=== PATIENT | male | born 1960 | race Caucasian/White ===

== ENCOUNTER 2017-02-27 02:02 | Inpatient (IN) | payer OTHER ==
[~2017-02-27] VITALS: Ht 167.6 cm; Wt 68.1 kg
[~2017-02-27 02:02] MED LIST: CHLO10CA7; CLX20; PENI250T3; TELM40TA11
[2017-02-27] MEDS ORDERED: ACETAMINOPHEN 325 MG TAB PO PRN (02:45)
[2017-02-27] MEDS ORDERED: MAGNESIUM HYDROXIDE SUSP 30 ML UDC PO PRN (02:45)
[2017-02-27] MEDS ORDERED: ALUMINUM/MAGNESIUM SUSP 30 ML UDC PO PRN (02:45)
[2017-02-27] MEDS ORDERED: BISMUTH SUBSALICYLATE PER ML OMNICELL CHARGE PO PRN (02:45)
[2017-02-27] MEDS ORDERED: hydrOXYzine HCL 25 MG TAB PO PRN ×2 (02:45)
[2017-02-27] MEDS ORDERED: NURSING VERBAL MED ORDER ONE ×2 (02:45→14:15)
[2017-02-27] MEDS ORDERED: SODIUM CHLORIDE 0.65% NA SOLN 45 ML (OCEAN) PRN (02:45)
[2017-02-27] MEDS ORDERED: HYDR25TA4 PO (04:30)
[2017-02-27] MEDS ORDERED: RST15 (04:33)
[2017-02-27] MEDS ORDERED: METO50TA16 PO (04:34)
[2017-02-27] MEDS ORDERED: ATOR-26 PO (04:35)
[2017-02-27] MEDS ORDERED: FLUO40CA8 PO (04:37)
[2017-02-27] MEDS ORDERED: CLOP1TAB15 PO (04:38)
[2017-02-27] MEDS ORDERED: TOPI25TA99 PO (04:39)
[2017-02-27] MEDS ORDERED: GABA-113 PO (04:40)
[2017-02-27] MEDS ORDERED: LORA-741 PO (04:42)
[2017-02-27] MEDS ORDERED: LISI40TA PO (04:44)
[2017-02-27] MEDS ORDERED: LTHSR/300 PO (04:45)
[2017-02-27] MEDS ORDERED: PRVHFAIN PO (04:51)
[2017-02-27] MEDS ORDERED: NTRGSL/4 SL (04:52)
[2017-02-27 04:53] VITALS: BP 146/94; PULSE 56; TEMP 36.8; Ht 167.6 cm; Wt 68.1 kg
[2017-02-27] MEDS ORDERED: ASPI81TA28 PO (04:54)
[2017-02-27 06:53] VITALS: BP 146/94; PULSE 56; TEMP 36.8
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
[2017-02-27] MEDS ORDERED: CLOPIDOGREL BISULFATE 75 MG TAB PO ONE (10:31)
[2017-02-27] MEDS ORDERED: HYDROCHLOROTHIAZIDE 25 MG TAB PO ONE (10:31)
[2017-02-27] MEDS ORDERED: LISINOPRIL 40 MG TAB PO ONE (10:31)
[2017-02-27] MEDS ORDERED: METOPROLOL TARTRATE 50 MG TAB PO ONE (10:31)
[2017-02-27] MEDS ORDERED: TOPIRAMATE 25 MG TAB PO ONE (10:31)
[2017-02-27] MEDS ORDERED: ASPIRIN 81 MG ECTAB PO ONE (10:31)
[2017-02-27] MEDS ORDERED: GABAPENTIN 300 MG CAP PO ONE (10:31)
[2017-02-27] MEDS ORDERED: FLUOXETINE HCL 20 MG CAP PO ONE (10:31)
[2017-02-27] MEDS ORDERED: NITROGLYCERIN 0.4 MG SL PER TAB CHARGE SL PRN (10:45)
[2017-02-27] MEDS ORDERED: ALBUTEROL HFA 8 GM INHALER INH PRN (10:45)
[2017-02-27] MEDS ORDERED: LORAZEPAM 0.5 MG TAB PO PRN (10:45)
[2017-02-27] MEDS: LITHIUM CARBONATE 300 MG TAB PO SCH ×4 (10:54→21:34)
[2017-02-27] MEDS ORDERED: NICOTINE 21 MG/24 HR TDSY EXT ONE (14:45)
[2017-02-27] MEDS: GABAPENTIN 300 MG CAP PO SCH (21:34)
[2017-02-27] MEDS: METOPROLOL TARTRATE 50 MG TAB PO SCH (21:34)
[2017-02-27] MEDS: ATORVASTATIN 40 MG TAB PO SCH (21:34)
[2017-02-27] MEDS: TOPIRAMATE 25 MG TAB PO SCH (21:35)
[2017-02-27] MEDS: TEMAZEPAM 15 MG CAP PO PRN (21:47)
[2017-02-27 21:48] VITALS: BP 123/80; PULSE 55
[2017-02-28 06:56] VITALS: BP_SYST 104; BP_SYST 119; BP_DIAS 71; BP_DIAS 85; PULSE 60; PULSE 67; TEMP 36.5
[2017-02-28] MEDS ORDERED: NICOTINE 21 MG/24 HR TDSY EXT SCH (09:00)
[2017-02-28] MEDS: ASPIRIN 81 MG ECTAB PO SCH (09:09)
[2017-02-28] MEDS: LITHIUM CARBONATE 300 MG TAB PO SCH ×3 (09:10→21:04)
[2017-02-28] MEDS: HYDROCHLOROTHIAZIDE 25 MG TAB PO SCH (09:10)
[2017-02-28] MEDS: METOPROLOL TARTRATE 50 MG TAB PO SCH ×2 (09:10→21:03)
[2017-02-28] MEDS: TOPIRAMATE 25 MG TAB PO SCH ×2 (09:10→21:04)
[2017-02-28] MEDS: GABAPENTIN 300 MG CAP PO SCH ×2 (09:10→21:04)
[2017-02-28] MEDS: LISINOPRIL 40 MG TAB PO SCH (09:11)
[2017-02-28] MEDS: FLUOXETINE HCL 20 MG CAP PO SCH (09:11)
[2017-02-28] MEDS: CLOPIDOGREL BISULFATE 75 MG TAB PO SCH (09:11)
[2017-02-28] MEDS ORDERED: NICOTINE 21 MG/24 HR TDSY EXT PRN (10:30)
--- NOTE | 2017-02-28 10:33 | Psychiatric Progress Notes ---
Progress Note Date of Service Feb 28, 2017. Interval History 56-year-old man from [place] who reports a history of bipolar disorder, was taken to [facility] based on referral by their crisis unit. He is depressed, having suicidal thoughts and although he denies acute plan, says that he worries he will spontaneously make an attempt. He was transferred here voluntarily but says that he was cut worst into doing so when he really wanted to be at a smoking facility and today is asking that we make those referrals. We will oblige his request but our perception is that his insurance will not pay for a voluntary transfer at this point and he would have to be financially responsible for an ambulance transport. He admits that he has not been taking his medications regularly and so our first step will be to place him back on all of his outpatient medications and see that he gets them regularly and work with him to be more compliant as an outpatient. We will collaborate with his outpatient providers. If we are not able to obtain a lateral transfer and he insists that he does not want to be here, he will be offered a 72 hour notice. We will recommend a family meeting which will necessarily have to be by phone with his partner. At this time, the patient requires inpatient mental health treatment due to the severity of his depression and the risk for spontaneous suicide attempt if discharged. Chief Complaint "If I go to groups and bear my soul, will I get out of here?". Subjective Patient was seen & assessed interval progress reviewed with Treatment Team. The patient was in his room and refusing to get out of bed or go to groups. He submitted a 72 hr notice yesterday saying that he wants to leave. He tries to bargain by asking if he goes to group and tells all, will I discharge him. He continues to feel that he was "dumped" here by [facility] and therefore not here by choice. He tries some juvenile reasoning to justify his staying in bed, saying "I'm in a hospital. In hospitals, you stay in bed.". His only genuine question was asking why was it so hard for him to join the groups, "Am I worse this time?". Our discussion centered on his anxiety about meeting new people. I reviewed our goals for his treatment that included ensuring he was safe for discharge and that in order to do that we needed to see that he was engaging in a meaningful way in his treatment. He says that he is not having SI today. He continues to refuse a meeting with his partner, but may be willing for a meeting with one of his daughters and he is also considering staying with a friend after discharge, rather than going home to his partner. He denies aud/ vis hallucinations. Review of Systems Constitutional: No fever, No chills, No sweats, No weight loss, No weakness, No fatigue, No problem reported ENT: No hearing loss, No unusual epistaxis, No nasal symptoms, No sore throat, No tinnitus, No dental problems, No trouble swallowing, No problem reported Respiratory: No cough, No sputum, No wheezing, No shortness of breath, No dyspnea on exertion, No dyspnea at rest, No hemoptysis, No problem reported Cardiovascular: No chest pain, No orthopnea, No PND, No edema, No claudication , No palpitations, No problem reported Abdomen: No pain, No nausea, No vomiting, No diarrhea, No constipation, No GI bleeding, No problem reported Musculoskeletal: No joint pain, No muscle pain, No swelling, No calf pain, No problem reported Neurologic: No memory loss, No paralysis, No weakness, No numbness/tingling, No vertigo, No balance problems, No problem reported Psychiatric: + problem reported (irritable, not wanting to be here) Integumentary: No rash, No itch, No new/changing skin lesions, No color change , No bleeding, No problem reported Sleep Information Total Hours of Sleep: 11.25 Meal Information Percent of Breakfast Consumed: 75 Percent of Lunch Consumed: 100 Mental Status Exam During interview pt is: uncooperative (irritable refusing to come to the interview room) Appearance: appropriately dressed, appropriately groomed Eye contact is: fair Motor behavior is: no abnormal motor movements Speech: normal in rate, rhythm & volume Affect: irritable Mood is: irritable Thought process: goal directed, perseveration (about wanting to be discharged) Thought content: reality based without delusions Suicidal thought are: denied, Plan: denied, Intent: denied Homicidal thoughts are: denied Hallucinations: denies auditory, denies visual Cognition: memory grossly intact, attention grossly intact Intelligence estimated to be: average Insight: impaired Judgement: impaired Impression The patient has submitted his 72 hr notice to leave treatment, but has not been willing to engage in treatment to mediate risk factors. He is refusing to go to groups or have a meeting with his partner. We will continue to encourage him to work on his own behalf, and demonstrate that he is safe to be discharged , but if he continues to refuse treatment, consideration will be given to a 302. Plan (1) bipolar ii disorder, depressed severe with mixed features 02/27 -Continue patient's outpatient medications including Prozac, lithium, Topamax -If mood remains unstable or irritable, consider reducing Prozac -Obtain outpatient records from current providers and coordinate aftercare -Family meeting with partner by phone -Patient requesting lateral transfer to a smoking facility which he said he was promised on transfer from [facility]. Will attempt, but patient may have to be responsible for ambulance transport payment -Every 15 minute checks for safety -Encourage participation in group and individual counseling -Assist the patient to learn and utilize additional healthy coping strategies 02/28 - Has submitted 72 hr notice, up on 03/02 as 1230. Will continue to gather information toward the need for further inpatient treatment. - Continue current meds - Encourage meeting with someone in his support [place] (2) Coronary artery disease 02/27 -Continue home medications (3) Tobacco use disorder 02/27 - Given patient's cardiovascular conditions, encouraged to quit smoking. Patient declined smoking cessation at this time although will be provided a nicotinic patch during his stay (4) Hypertension 02/27 -Continue home medications -Monitor blood pressure - Encourage patient to address modifiable risk factors including smoking (5) Dyslipidemia 02/27 - Continue atorvastatin at home dose (6) History of acute myocardial infarction 02/27 -Encourage patient to exercise and address modifiable heart risk factors Has been reviewed with Dr. Bárbara Lombardi Discharge / Aftercare Planning Primary Care Physician: Name: Dr. Garcia Phone Number: [phone] Psychiatrist: Name: Dr. Jose BRYAN Phone Number: [phone] Date of Appointment: Mar 08, 2017 Time of Appointment: 1 pm Therapist: Name: Justin HUIZAR Phone Number: [phone] Date of Appointment: Mar 01, 2017 Time of Appointment: 1 pm Visit Code E&M Code: 18866 Inventory Assets Strengths: Has housing, has been with his partner for 3 years Needs: To take medications regularly, abstain from illegal substances Risk Factors Assessment Male: Yes : Yes /single/: No Higher / Fall in social status: No Health problems: Yes Mental Health Diagnoses: Yes Substance use disorders: No Previous attempt: Yes Family history of suicide: Yes Previous psychiatric stay: Yes Hopelessness: No Smoker: Yes Protective Factors Assessment Evangelical beliefs: No : No Responsible for young children: No Employed: No Stable relationships: No Good rapport with provider: Yes Data Vital Signs Last 24 Hrs: Date Time Temp Pulse Resp B/P (MAP) Pulse Ox O2 Delivery O2 Flow Rate FiO2 02/28/17 06:56 36.5 60 16 104/71 67 119/85 02/27/17 21:48 55 16 123/80 Meds Administered Last 24 Hrs: Meds Administered (Past 24Hrs) Medications (Trade) Dose Ordered Sig/Susan Route Start Time Stop Time Status Last Admin Dose Admin Aspirin (Ecotrin Tab) 81 mg QAM PO 02/28/17 09:00 03/30/17 08:59 02/28/17 09:09 81 MG Atorvastatin Calcium (Lipitor Tab) 80 mg HS PO 02/27/17 22:00 03/29/17 21:59 02/27/17 21:34 80 MG Clopidogrel Bisulfate (plAVix TAB) 75 mg QAM PO 02/28/17 09:00 03/30/17 08:59 02/28/17 09:11 75 MG Fluoxetine HCl (Prozac Cap) 80 mg QAM PO 02/28/17 09:00 03/30/17 08:59 02/28/17 09:11 80 MG Gabapentin (Neurontin Cap) 300 mg BID PO 02/27/17 22:00 03/29/17 21:59 02/28/17 09:10 300 MG Hydrochlorothiazide (Hydrochlorothiazide Tab) 25 mg QAM PO 02/28/17 09:00 03/30/17 08:59 02/28/17 09:10 25 MG Lisinopril (Zestril Tab) 40 mg QAM PO 02/28/17 09:00 03/30/17 08:59 02/28/17 09:11 40 MG Metoprolol Tartrate (Lopressor Tab) 50 mg BID PO 02/27/17 22:00 03/29/17 21:59 02/28/17 09:10 50 MG Temazepam (Restoril Cap) 15 mg HS PRN PO 02/27/17 10:45 03/29/17 10:44 02/27/17 21:47 15 MG Topiramate (Topamax Tab) 75 mg BID PO 02/27/17 22:00 03/29/17 21:59 02/28/17 09:10 75 MG [place] Carbonate ([place] Carbonate Tab) 300 mg TID PO 02/27/17 14:00 03/29/17 13:59 02/28/17 09:10 300 MG Aspirin (Ecotrin Tab) 81 mg 1031 ONCE PO 02/27/17 10:31 02/27/17 10:36 DC 02/27/17 10:48 81 MG Clopidogrel Bisulfate (plAVix TAB) 75 mg 1031 ONCE PO 02/27/17 10:31 02/27/17 10:36 DC 02/27/17 10:51 75 MG Fluoxetine HCl (Prozac Cap) 80 mg 1031 ONCE PO 02/27/17 10:31 02/27/17 10:38 DC 02/27/17 10:51 80 MG Gabapentin (Neurontin Cap) 300 mg 1031 ONCE PO 02/27/17 10:31 02/27/17 10:38 DC 02/27/17 10:50 300 MG Hydrochlorothiazide (Hydrochlorothiazide Tab) 25 mg 1031 ONCE PO 02/27/17 10:31 02/27/17 10:38 DC 02/27/17 10:49 25 MG Lisinopril (Zestril Tab) 40 mg 1031 ONCE PO 02/27/17 10:31 02/27/17 10:38 DC 02/27/17 10:52 40 MG Metoprolol Tartrate (Lopressor Tab) 50 mg 1031 ONCE PO 02/27/17 10:31 02/27/17 10:39 DC 02/27/17 10:49 50 MG Topiramate (Topamax Tab) 75 mg 1031 ONCE PO 02/27/17 10:31 02/27/17 10:39 DC 02/27/17 10:52 75 MG Nicotine (Nicoderm Cq 21MG Patch) 1 patch NOW ONCE EXT 02/27/17 14:45 02/27/17 14:46 DC 02/27/17 15:37 1 PATCH
[2017-02-28 20:51] VITALS: BP 116/78; PULSE 63
[2017-02-28] MEDS: TEMAZEPAM 15 MG CAP PO PRN (21:03)
[2017-02-28] MEDS: ATORVASTATIN 40 MG TAB PO SCH (21:04)
[2017-03-01 06:51] VITALS: BP_SYST 103; BP_SYST 113; BP_DIAS 73; BP_DIAS 76; PULSE 54; PULSE 65; TEMP 36.8
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
[2017-03-01] MEDS: ASPIRIN 81 MG ECTAB PO SCH (08:43)
[2017-03-01] MEDS: FLUOXETINE HCL 20 MG CAP PO SCH (08:44)
[2017-03-01] MEDS: GABAPENTIN 300 MG CAP PO SCH (08:44)
[2017-03-01] MEDS: CLOPIDOGREL BISULFATE 75 MG TAB PO SCH (08:44)
[2017-03-01] MEDS: LITHIUM CARBONATE 300 MG TAB PO SCH (08:44)
[2017-03-01] MEDS: HYDROCHLOROTHIAZIDE 25 MG TAB PO SCH (08:44)
[2017-03-01] MEDS: METOPROLOL TARTRATE 50 MG TAB PO SCH (08:44)
[2017-03-01] MEDS: TOPIRAMATE 25 MG TAB PO SCH (08:44)
[2017-03-01] MEDS: LISINOPRIL 40 MG TAB PO SCH (08:45)
== END 2017-03-01 09:45 | disposition home or self-care (01) | DRG 885 ==
LOC: C.MHU 02:20
PROVIDERS: ADMIT Student in an Organized Health Care Education/Training Program; ATTEND Psychiatry & Neurology Psychiatry
DX: F31.81 Bipolar II disorder (principal); F41.9 Anxiety disorder, unspecified; I25.10 Atherosclerotic heart disease of native coronary artery without angina pectoris; F60.89 Other specific personality disorders; F17.210 Nicotine dependence, cigarettes, uncomplicated; I10 Essential (primary) hypertension; E78.5 Hyperlipidemia, unspecified; I25.2 Old myocardial infarction; Z79.899 Other long term (current) drug therapy; Z79.82 Long term (current) use of aspirin; Z79.02 Long term (current) use of antithrombotics/antiplatelets